=== PATIENT | female | born 1995 | race African-American/Black ===

== ENCOUNTER 2017-01-24 05:49 | Emergency (ER) | payer OTHER ==
[~2017-01-24] VITALS: Ht 162.6 cm; Wt 80.0 kg
[~2017-01-24 05:49] MED LIST: OXCA600T5 PO
[2017-01-24] MEDS ORDERED: IOHEXOL-300 100 ML BOTTLE ONE (06:00)
[2017-01-24] MEDS ORDERED: SODIUM CHLORIDE 0.9% 10ML VIAL ONE (06:00)
[2017-01-24] MEDS ORDERED: MORPHINE SULFATE 4 MG/ML CPJ (NOT FOR IM USE) IV STA (06:13)
[2017-01-24] MEDS ORDERED: SODIUM CHLORIDE 0.9% 1,000 ML IV ONE (06:13)
[2017-01-24] MEDS ORDERED: ONDANSETRON HCL 4MG/2ML VIAL IV STA (06:13)
[2017-01-24 06:30] LABS: CLARITY URINE CLOUDY (CLEAR); COLOR URINE YELLOW (YELLOW); GLUCOSE URINE NEGATIVE (NEGATIVE); KETONES URINE NEGATIVE (NEGATIVE); LEUKOCYTE ESTERASE URINE 3+ (NEGATIVE); NITRITE URINE NEGATIVE (NEGATIVE); OCCULT BLOOD URINE TRACE (NEGATIVE); PH URINE 6.5 (4.5-8.0); PROTEIN URINE NEGATIVE (NEGATIVE); SPECIFIC GRAVITY URINE 1.022 (1.005-1.030); UROBILINOGEN URINE 0.2 E.U./dL (0.2-1.0)
[2017-01-24 06:33] LABS: BASOPHILS % 0.6 % (0.0-2.0); HEMATOCRIT. 36.9 % (36.0-48.0); HEMOGLOBIN. 12.1 g/dL (12.0-16.0); LYMPHOCYTES % 41.4 % (20.0-50.0); MEAN CORPUSCULAR HEMOGLOBIN 27.3 pg (28.0-32.0); MEAN CORPUSCULAR HGB CONC 32.9 g/dL (31.0-37.0); MEAN PLATELET VOLUME 8.6 fl (7.4-10.4); MONOCYTES % 10.3 % (2.0-8.0); NEUTROPHILS % 45.7 % (40.0-76.0); PLATELET 229 x1000/uL (130-400); RED BLOOD CELL COUNT 4.45 mill/uL (4.2-5.4); RED CELL DISTRIBUTION WIDTH 14.7 % (11.6-14.6)
[2017-01-24 06:36] LABS: PARTIAL THROMBOPLASTIN TIME 27.5 sec (24.0-34.0); PROTHROMBIN TIME 10.2 sec
[2017-01-24 06:41] LABS: ALANINE AMINOTRANSFERASE 32 IU/L (13-61); ALBUMIN 3.5 g/dL (3.4-5.0); ANION GAP 13; CALCIUM 9.1 mg/dL (8.5-10.1); CARBON DIOXIDE 26 mEq/L (21-32); CHLORIDE 105 mEq/L (98-107); INDEX HEMOLYSI 1 (1-3); INDEX ICTERIC 1 (1-4); INDEX LIPEMIC 1 (1-3); LIPASE 150 IU/L (73-393); UREA NITROGEN BLOOD 11 mg/dL (7-21); eGFR > 60 mL/min (>60)
[2017-01-24] MEDS ORDERED: CEFTRIAXONE 1 G PREMIX 50 ML IV ONE (06:45)
[2017-01-24 06:47] LABS: HCG SCREEN NEGATIVE
[2017-01-24 06:57] LABS: BACTERIA URINE 4+; SQUAMOUS EPITHELIAL CELL URINE 3+ /lpf (RARE/1+); WBC URINE 50-100 /hpf (0-2)
[2017-01-24] MEDS ORDERED: KETOROLAC 30MG/ML VIAL IV ONE (08:45)
[2017-01-24 09:10] VITALS: BP 151/94
== END 2017-01-24 09:24 | disposition home or self-care (01) ==
LOC: ER 05:59
DX: N39.0 Urinary tract infection, site not specified (principal); R56.9 Unspecified convulsions
CPT/HCPCS: 36415; 74177; 76830; 76856; 80053; 81001; 83690; 84703; 85025; 85610; 85730; 87077; 87086; 96361; 96365; 96375; 99285; A4216; J0696; J1885; J2270; J2405; J7030; Q9967; Z7610

== ENCOUNTER 2017-02-14 13:19 | Inpatient (IN) | payer MEDICAID, OTHER ==
[~2017-02-14] VITALS: Ht 162.6 cm; Wt 84.9 kg
[2017-02-14] MEDS ORDERED: SODIUM CHLORIDE 0.9% 1,000 ML IV ONE (14:49)
[2017-02-14] MEDS ORDERED: ONDANSETRON HCL 4MG/2ML VIAL IV STA (14:49)
[2017-02-14] MEDS ORDERED: LORAZEPAM 2MG/ML CPJ ONE (14:56)
[2017-02-14] MEDS ORDERED: LORAZEPAM 2MG/ML CPJ IV ONE ×2 (15:00→20:30)
[2017-02-14 15:07] LABS: BASOPHILS % 0.4 % (0.0-2.0); HEMATOCRIT. 35.8 % (36.0-48.0); HEMOGLOBIN. 11.9 g/dL (12.0-16.0); LYMPHOCYTES % 19.4 % (20.0-50.0); MEAN CORPUSCULAR HEMOGLOBIN 27.5 pg (28.0-32.0); MEAN CORPUSCULAR HGB CONC 33.2 g/dL (31.0-37.0); MEAN CORPUSCULAR VOLUME 82.9 fL (81.0-99.0); MEAN PLATELET VOLUME 8.2 fl (7.4-10.4); MONOCYTES % 9.3 % (2.0-8.0); NEUTROPHILS % 69.9 % (40.0-76.0); PLATELET 266 x1000/uL (130-400); RED BLOOD CELL COUNT 4.31 mill/uL (4.2-5.4); RED CELL DISTRIBUTION WIDTH 14.8 % (11.6-14.6); WHITE BLOOD COUNT 7.3 x1000/uL (4.5-11.0)
[2017-02-14 15:15] LABS: PROTHROMBIN TIME 10.5 sec
[2017-02-14 15:21] LABS: ALANINE AMINOTRANSFERASE 27 IU/L (13-61); ALBUMIN 3.4 g/dL (3.4-5.0); ANION GAP 10; CALCIUM 9.1 mg/dL (8.5-10.1); CARBON DIOXIDE 28 mEq/L (21-32); CHLORIDE 106 mEq/L (98-107); ETHANOL BLOOD < 10 mg/dL; INDEX HEMOLYSI 1 (1-3); INDEX ICTERIC 1 (1-4); INDEX LIPEMIC 1 (1-3); UREA NITROGEN BLOOD 14 mg/dL (7-21); eGFR > 60 mL/min (>60)
[2017-02-14 15:22] LABS: CREATINE KINASE 126 IU/L (26-192); NT PRO B-TYPE NATRIURETIC PEP 84 pg/mL (5-125); TROPONIN I < 0.02 ng/mL (0.00-0.04)
[2017-02-14 15:23] LABS: PHENOBARBITAL 2.5 ug/mL (15.0-40.0)
[2017-02-14 15:35] LABS: CARBAMAZEPINE < 0.5 ug/mL (4-12); PHENYTOIN < 0.4 ug/mL (10-20); VALPROIC ACID 5.2 ug/mL (50-100)
[2017-02-14 16:51] LABS: CLARITY URINE CLEAR (CLEAR); COLOR URINE YELLOW (YELLOW); GLUCOSE URINE NEGATIVE (NEGATIVE); KETONES URINE NEGATIVE (NEGATIVE); LEUKOCYTE ESTERASE URINE 1+ (NEGATIVE); NITRITE URINE NEGATIVE (NEGATIVE); OCCULT BLOOD URINE TRACE (NEGATIVE); PROTEIN URINE NEGATIVE (NEGATIVE); SPECIFIC GRAVITY URINE 1.025 (1.005-1.030); UROBILINOGEN URINE 0.2 E.U./dL (0.2-1.0)
[2017-02-14 17:18] LABS: BACTERIA URINE 1+; RBC URINE 0-2 /hpf (0-2); SQUAMOUS EPITHELIAL CELL URINE 1+ /lpf (RARE/1+)
[2017-02-14] MEDS ORDERED: LEVETIRACETAM 500MG PREMIX 100 ML IV ONE (17:30)
[2017-02-14 17:45] LABS: *AMPHETAMINES SCREEN URINE NEGATIVE (NEGATIVE); *BARBITURATES SCREEN URINE NEGATIVE (NEGATIVE); *BENZODIAZEPINES SCREEN URINE NEGATIVE (NEGATIVE); *COCAINE SCREEN URINE NEGATIVE (NEGATIVE); CANNABINOID URINE SCREEN NEGATIVE (NEGATIVE); ECSTASY MDMA SCREEN URINE NEGATIVE (NEGATIVE); METHADONE URINE SCREEN NEGATIVE (NEGATIVE); OPIATES URINE SCREEN NEGATIVE (NEGATIVE); PHENCYCLIDINE URINE SCREEN NEGATIVE (NEGATIVE)
[2017-02-15] MEDS ORDERED: ONDANSETRON HCL 4MG/2ML VIAL IV PRN (00:45)
[2017-02-15] MEDS ORDERED: LORAZEPAM 2MG/ML CPJ IV PRN (00:45)
[2017-02-15] MEDS ORDERED: ACETAMINOPHEN 325MG TABLET PO PRN (00:45)
[2017-02-15] MEDS ORDERED: CLONIDINE 0.1MG TABLET PO PRN (00:45)
[2017-02-15] MEDS ORDERED: IPRATROPIUM/ALBUTEROL 0.5-3(2.5)MG/3ML NEB INH PRN (00:45)
[2017-02-15] MEDS ORDERED: MAGNESIUM/ALUMINUM HYDROXIDE/SIMETHICONE 30ML UDC PO PRN (00:45)
[2017-02-15 01:15] LABS: CHLORIDE 106 mEq/L (98-107); INDEX HEMOLYSI 1 (1-3); INDEX ICTERIC 1 (1-4); INDEX LIPEMIC 1 (1-3)
[2017-02-15 01:21] LABS: ANION GAP 12; CALCIUM 8.7 mg/dL (8.5-10.1); CARBON DIOXIDE 28 mEq/L (21-32); UREA NITROGEN BLOOD 9 mg/dL (7-21); eGFR > 60 mL/min (>60)
[2017-02-15 03:10] VITALS: BP 129/77
[2017-02-15 04:00] VITALS: BP 129/77
[2017-02-15 07:46] LABS: INDEX HEMOLYSI 1 (1-3)
[2017-02-15 08:00] VITALS: BP 120/68
[2017-02-15 08:13] LABS: CREATINE KINASE 108 IU/L (26-192); CREATINE KINASE MB FRACTION < 0.5 ng/mL (0.5-3.6); TROPONIN I < 0.02 ng/mL (0.00-0.04)
[2017-02-15] MEDS: ENOXAPARIN 40MG/0.4ML SYR SUBCUT SCH (08:44)
[2017-02-15] MEDS ORDERED: LEVETIRACETAM 500MG TABLET PO SCH (09:00)
[2017-02-15] MEDS ORDERED: DIVALPROEX SODIUM 500MG ER TABLET PO SCH (11:15)
[2017-02-15 12:00] VITALS: BP 125/70
[2017-02-15] MEDS: LORAZEPAM 2MG/ML CPJ IV PRN ×2 (12:28→21:02)
[2017-02-15] MEDS: CEFTRIAXONE 1 G PREMIX 50 ML IV SCH (13:20)
[2017-02-15] MEDS ORDERED: PHENYTOIN SODIUM 1,000 MG in SODIUM CHLORIDE 0.9% 100 ML IV NR (15:30)
[2017-02-15 16:00] VITALS: BP 140/96
[2017-02-15] MEDS: DIVALPROEX SODIUM 500MG ER TABLET PO SCH (17:02)
[2017-02-15 17:21] LABS: CREATINE KINASE 104 IU/L (26-192); CREATINE KINASE MB FRACTION < 0.5 ng/mL (0.5-3.6); INDEX HEMOLYSI 1 (1-3); TROPONIN I < 0.02 ng/mL (0.00-0.04)
[2017-02-15 20:00] VITALS: BP 110/73
[2017-02-15 23:01] LABS: CLARITY URINE CLEAR (CLEAR); COLOR URINE YELLOW (YELLOW); GLUCOSE URINE NEGATIVE (NEGATIVE); KETONES URINE NEGATIVE (NEGATIVE); LEUKOCYTE ESTERASE URINE 3+ (NEGATIVE); NITRITE URINE NEGATIVE (NEGATIVE); OCCULT BLOOD URINE NEGATIVE (NEGATIVE); PH URINE 6.5 (4.5-8.0); PROTEIN URINE NEGATIVE (NEGATIVE); SPECIFIC GRAVITY URINE 1.011 (1.005-1.030); UROBILINOGEN URINE 0.2 E.U./dL (0.2-1.0)
[2017-02-15 23:33] LABS: RBC URINE 0-2 /hpf (0-2)
[2017-02-15 23:34] LABS: SQUAMOUS EPITHELIAL CELL URINE FEW /lpf (RARE/1+)
[2017-02-15 23:35] LABS: BACTERIA URINE 1+
[2017-02-16] VITALS: BP 132/74
[2017-02-16 04:00] VITALS: BP 123/81
[2017-02-16 06:08] LABS: BASOPHILS % 0.4 % (0.0-2.0); EOSINOPHILS % 2.1 % (0.0-5.0); HEMATOCRIT. 38.8 % (36.0-48.0); HEMOGLOBIN. 12.8 g/dL (12.0-16.0); LYMPHOCYTES % 37.9 % (20.0-50.0); MEAN CORPUSCULAR HEMOGLOBIN 27.6 pg (28.0-32.0); MEAN CORPUSCULAR HGB CONC 32.9 g/dL (31.0-37.0); MEAN CORPUSCULAR VOLUME 83.9 fL (81.0-99.0); MEAN PLATELET VOLUME 8.6 fl (7.4-10.4); NEUTROPHILS % 47.6 % (40.0-76.0); PLATELET 254 x1000/uL (130-400); RED BLOOD CELL COUNT 4.62 mill/uL (4.2-5.4); RED CELL DISTRIBUTION WIDTH 14.9 % (11.6-14.6); WHITE BLOOD COUNT 5.3 x1000/uL (4.5-11.0)
[2017-02-16 06:56] LABS: CHLORIDE 102 mEq/L (98-107); INDEX HEMOLYSI 1 (1-3); INDEX ICTERIC 1 (1-4); INDEX LIPEMIC 1 (1-3)
[2017-02-16 07:30] LABS: ANION GAP 17; CALCIUM 9.5 mg/dL (8.5-10.1); CARBON DIOXIDE 25 mEq/L (21-32); HDL CHOLESTEROL 66 mg/dL (40-59); LDL CHOLESTEROL 156 mg/dL (5-100); TRIGLYCERIDE 67 mg/dL (0-150); UREA NITROGEN BLOOD 13 mg/dL (7-21); eGFR > 60 mL/min (>60)
[2017-02-16 08:00] VITALS: BP 117/70
[2017-02-16] MEDS: LORAZEPAM 2MG/ML CPJ IV PRN (08:03)
[2017-02-16] MEDS: DIVALPROEX SODIUM 500MG ER TABLET PO SCH ×2 (09:46→12:48)
[2017-02-16] MEDS: ENOXAPARIN 40MG/0.4ML SYR SUBCUT SCH (09:47)
[2017-02-16 12:00] VITALS: BP 118/80
[2017-02-16] MEDS: CEFTRIAXONE 1 G PREMIX 50 ML IV SCH (12:48)
[2017-02-16 13:43] VITALS: BP 127/91
[2017-02-16] MEDS ORDERED: PHENYTOIN SODIUM EXTENDED 100MG CAPSULE PO SCH (21:00)
== END 2017-02-16 14:15 | disposition home or self-care (01) | DRG 53 ==
LOC: ER 15:10 → 8WST 21:02
PROVIDERS: ADMIT Internal Medicine; ATTEND Internal Medicine
DX: G40.919 Epilepsy, unspecified, intractable, without status epilepticus (principal); N39.0 Urinary tract infection, site not specified; E78.5 Hyperlipidemia, unspecified; E86.0 Dehydration
CPT/HCPCS: 36415; 70450; 70551; 80048; 80053; 80061; 80156; 80165; 80184; 80185; 80305; 81001; 82550; 82553; 82962; 83880; 84443; 84484; 85025; 85610; 87086; 93005; 93970; 96361; 96374; 96375; 96376; 99285; C1893; G0482; J0696; J1165; J1650; J1953; J2060; J2405; J7030; J7040; J7050

== ENCOUNTER 2017-06-30 08:27 | Emergency (ER) | payer OTHER, MEDICAID ==
[~2017-06-30] VITALS: Ht 165.1 cm; Wt 73.0 kg
[2017-06-30] MEDS ORDERED: LORAZEPAM 2MG/ML CPJ IV ONE (08:45)
[2017-06-30 09:22] LABS: GLUCOSE URINE NEGATIVE (NEGATIVE); KETONES URINE NEGATIVE (NEGATIVE); LEUKOCYTE ESTERASE URINE 2+ (NEGATIVE); NITRITE URINE NEGATIVE (NEGATIVE); OCCULT BLOOD URINE 2+ (NEGATIVE); PROTEIN URINE NEGATIVE (NEGATIVE); SPECIFIC GRAVITY URINE 1.023 (1.005-1.030); UROBILINOGEN URINE 0.2 E.U./dL (0.2-1.0)
[2017-06-30 09:31] LABS: BASOPHILS % 0.7 % (0.0-2.0); EOSINOPHILS % 2.1 % (0.0-5.0); HEMATOCRIT. 36.6 % (36.0-48.0); INR 0.9; LYMPHOCYTES % 44.3 % (20.0-50.0); MEAN CORPUSCULAR HEMOGLOBIN 26.7 pg (28.0-32.0); MEAN CORPUSCULAR VOLUME 81.5 fL (81.0-99.0); MONOCYTES % 8.2 % (2.0-8.0); NEUTROPHILS % 44.7 % (40.0-76.0); PLATELET 249 x1000/uL (130-400); PROTHROMBIN TIME 9.7 sec (9.4-11.6); RED BLOOD CELL COUNT 4.49 mill/uL (4.2-5.4); RED CELL DISTRIBUTION WIDTH 14.7 % (11.6-14.6)
[2017-06-30 09:31] LABS: CLARITY URINE HAZY (CLEAR); COLOR URINE YELLOW (YELLOW)
[2017-06-30 09:35] LABS: *AMPHETAMINES SCREEN URINE NEGATIVE (NEGATIVE); *BARBITURATES SCREEN URINE NEGATIVE (NEGATIVE); *BENZODIAZEPINES SCREEN URINE NEGATIVE (NEGATIVE); *COCAINE SCREEN URINE NEGATIVE (NEGATIVE); CANNABINOID URINE SCREEN NEGATIVE (NEGATIVE); METHADONE URINE SCREEN NEGATIVE (NEGATIVE); OPIATES URINE SCREEN NEGATIVE (NEGATIVE); PHENCYCLIDINE URINE SCREEN NEGATIVE (NEGATIVE)
[2017-06-30 09:41] LABS: CARBON DIOXIDE 26 mEq/L (21-32); CHLORIDE 105 mEq/L (98-107); ETHANOL BLOOD < 10 mg/dL; TROPONIN I < 0.02 ng/mL (0.00-0.04)
[2017-06-30] MEDS ORDERED: VALPROATE SODIUM 500 MG in SODIUM CHLORIDE 0.9% 100 ML IV SCH (11:30)
[2017-06-30 14:11] VITALS: BP 128/71
== END 2017-06-30 14:44 | disposition home or self-care (01) ==
LOC: ER 10:45
DX: G40.909 Epilepsy, unspecified, not intractable, without status epilepticus (principal); R03.0 Elevated blood-pressure reading, without diagnosis of hypertension
CPT/HCPCS: 36415; 71010; 80053; 80165; 80305; 81001; 81025; 83880; 84484; 85025; 85610; 93005; 96365; 96375; 99285; G0482; J2060; J3490; Z7610; J7050

== ENCOUNTER 2017-08-09 20:04 | Emergency (ER) | payer MEDICAID, OTHER ==
[~2017-08-09] VITALS: Ht 167.6 cm; Wt 76.0 kg
[2017-08-09] MEDS ORDERED: LORAZEPAM 2MG/ML CPJ ONE (20:36)
[2017-08-09 21:17] LABS: *AMPHETAMINES SCREEN URINE NEGATIVE (NEGATIVE); *BARBITURATES SCREEN URINE NEGATIVE (NEGATIVE); *BENZODIAZEPINES SCREEN URINE NEGATIVE (NEGATIVE); *COCAINE SCREEN URINE NEGATIVE (NEGATIVE); CANNABINOID URINE SCREEN NEGATIVE (NEGATIVE); METHADONE URINE SCREEN NEGATIVE (NEGATIVE); OPIATES URINE SCREEN NEGATIVE (NEGATIVE); PHENCYCLIDINE URINE SCREEN NEGATIVE (NEGATIVE)
[2017-08-09 21:34] LABS: BASOPHILS % 0.6 % (0.0-2.0); EOSINOPHILS % 0.5 % (0.0-5.0); HEMATOCRIT. 34.9 % (36.0-48.0); HEMOGLOBIN. 11.9 g/dL (12.0-16.0); LYMPHOCYTES % 28.9 % (20.0-50.0); MEAN CORPUSCULAR VOLUME 82.6 fL (81.0-99.0); MEAN PLATELET VOLUME 8.9 fl (7.4-10.4); MONOCYTES % 8.7 % (2.0-8.0); NEUTROPHILS % 61.3 % (40.0-76.0); PLATELET 215 x1000/uL (130-400); RED BLOOD CELL COUNT 4.23 mill/uL (4.2-5.4); RED CELL DISTRIBUTION WIDTH 14.8 % (11.6-14.6)
[2017-08-09 21:40] LABS: CARBON DIOXIDE 25 mEq/L (21-32); CHLORIDE 105 mEq/L (98-107)
[2017-08-09 21:42] LABS: ETHANOL BLOOD < 10 mg/dL
[2017-08-09 21:47] LABS: HCG SCREEN NEGATIVE
[2017-08-09] MEDS ORDERED: DIVALPROEX SODIUM 250MG ER TABLET PO ONE (22:00)
[2017-08-09 22:30] VITALS: BP 143/85
== END 2017-08-09 23:00 | disposition home or self-care (01) ==
LOC: ER 20:54
DX: G40.909 Epilepsy, unspecified, not intractable, without status epilepticus (principal); D64.9 Anemia, unspecified; F90.9 Attention-deficit hyperactivity disorder, unspecified type; F84.0 Autistic disorder; F31.9 Bipolar disorder, unspecified
CPT/HCPCS: 36415; 70450; 80053; 80165; 80305; 82962; 84703; 85025; 99285; G0482; J2060; Z7610

== ENCOUNTER 2017-08-25 07:21 | Emergency (ER) | payer OTHER ==
[~2017-08-25] VITALS: Ht 162.6 cm; Wt 95.0 kg
[2017-08-25] MEDS ORDERED: ONDANSETRON 4MG ODT PO STA (07:51)
[2017-08-25] MEDS ORDERED: KETOROLAC 60MG/2ML VIAL IM STA (07:51)
[2017-08-25 08:18] LABS: BASOPHILS % 0.6 % (0.0-2.0); EOSINOPHILS % 0.8 % (0.0-5.0); HEMATOCRIT. 38.2 % (36.0-48.0); HEMOGLOBIN. 12.8 g/dL (12.0-16.0); LYMPHOCYTES % 44.4 % (20.0-50.0); MEAN CORPUSCULAR HEMOGLOBIN 27.7 pg (28.0-32.0); MEAN PLATELET VOLUME 8.5 fl (7.4-10.4); MONOCYTES % 10.9 % (2.0-8.0); NEUTROPHILS % 43.3 % (40.0-76.0); PLATELET 292 x1000/uL (130-400); RED CELL DISTRIBUTION WIDTH 14.9 % (11.6-14.6)
[2017-08-25 08:21] LABS: GLUCOSE URINE NEGATIVE (NEGATIVE); KETONES URINE NEGATIVE (NEGATIVE); LEUKOCYTE ESTERASE URINE 2+ (NEGATIVE); NITRITE URINE NEGATIVE (NEGATIVE); OCCULT BLOOD URINE NEGATIVE (NEGATIVE); PH URINE 6.5 (4.5-8.0); PROTEIN URINE NEGATIVE (NEGATIVE); SPECIFIC GRAVITY URINE 1.025 (1.005-1.030); UROBILINOGEN URINE 0.2 E.U./dL (0.2-1.0)
[2017-08-25 08:24] LABS: CLARITY URINE HAZY (CLEAR); COLOR URINE YELLOW (YELLOW)
[2017-08-25 08:31] LABS: PROTHROMBIN TIME 10.5 sec (9.4-11.6)
[2017-08-25 08:33] LABS: CARBON DIOXIDE 27 mEq/L (21-32); CHLORIDE 104 mEq/L (98-107)
[2017-08-25 08:45] LABS: *AMPHETAMINES SCREEN URINE NEGATIVE (NEGATIVE); *BARBITURATES SCREEN URINE NEGATIVE (NEGATIVE); *BENZODIAZEPINES SCREEN URINE NEGATIVE (NEGATIVE); *COCAINE SCREEN URINE NEGATIVE (NEGATIVE); CANNABINOID URINE SCREEN NEGATIVE (NEGATIVE); METHADONE URINE SCREEN NEGATIVE (NEGATIVE); OPIATES URINE SCREEN NEGATIVE (NEGATIVE); PHENCYCLIDINE URINE SCREEN NEGATIVE (NEGATIVE)
[2017-08-25 09:18] VITALS: BP 119/63
== END 2017-08-25 09:33 | disposition home or self-care (01) ==
LOC: ER 07:41
DX: N39.0 Urinary tract infection, site not specified (principal); R56.9 Unspecified convulsions; F31.9 Bipolar disorder, unspecified
CPT/HCPCS: 36415; 80053; 80305; 81001; 81025; 83690; 85025; 85610; 96372; 99284; J1885; Q0162

== ENCOUNTER 2017-09-27 21:17 | Emergency (ER) | payer MEDICAID, OTHER ==
[~2017-09-27] VITALS: Ht 170.2 cm; Wt 75.0 kg
[2017-09-27] MEDS ORDERED: SODIUM CHLORIDE 0.9% 1,000 ML IV ONE (21:27)
[2017-09-27] MEDS ORDERED: LORAZEPAM 2MG/ML CPJ IV ONE (21:30)
[2017-09-27 21:55] LABS: BASOPHILS % 0.4 % (0.0-2.0); EOSINOPHILS % 1.2 % (0.0-5.0); HEMATOCRIT. 35.7 % (36.0-48.0); HEMOGLOBIN. 11.9 g/dL (12.0-16.0); LYMPHOCYTES % 30.1 % (20.0-50.0); MEAN CORPUSCULAR VOLUME 83.9 fL (81.0-99.0); MEAN PLATELET VOLUME 8.6 fl (7.4-10.4); MONOCYTES % 10.9 % (2.0-8.0); NEUTROPHILS % 57.4 % (40.0-76.0); PLATELET 239 x1000/uL (130-400); RED BLOOD CELL COUNT 4.26 mill/uL (4.2-5.4); RED CELL DISTRIBUTION WIDTH 14.7 % (11.6-14.6)
[2017-09-27 21:58] LABS: PROTHROMBIN TIME 10.4 sec (9.4-11.6)
[2017-09-27 22:04] LABS: AMMONIA < 25 uMol/L (<32); HCG SCREEN NEGATIVE
[2017-09-27 22:13] LABS: CARBON DIOXIDE 28 mEq/L (21-32); CHLORIDE 104 mEq/L (98-107); CREATINE KINASE 115 IU/L (26-192); ETHANOL BLOOD < 10 mg/dL
[2017-09-27 22:13] LABS: CLARITY URINE CLEAR (CLEAR); COLOR URINE YELLOW (YELLOW); GLUCOSE URINE NEGATIVE (NEGATIVE); KETONES URINE NEGATIVE (NEGATIVE); LEUKOCYTE ESTERASE URINE TRACE (NEGATIVE); NITRITE URINE NEGATIVE (NEGATIVE); OCCULT BLOOD URINE NEGATIVE (NEGATIVE); PROTEIN URINE NEGATIVE (NEGATIVE); SPECIFIC GRAVITY URINE 1.026 (1.005-1.030); UROBILINOGEN URINE 0.2 E.U./dL (0.2-1.0)
[2017-09-27 22:16] LABS: CARBAMAZEPINE < 0.5 ug/mL (4-12); PHENOBARBITAL < 2.1 ug/mL (15.0-40.0)
[2017-09-27 22:29] LABS: *AMPHETAMINES SCREEN URINE NEGATIVE (NEGATIVE); *BARBITURATES SCREEN URINE NEGATIVE (NEGATIVE); *BENZODIAZEPINES SCREEN URINE NEGATIVE (NEGATIVE); *COCAINE SCREEN URINE NEGATIVE (NEGATIVE); CANNABINOID URINE SCREEN NEGATIVE (NEGATIVE); METHADONE URINE SCREEN NEGATIVE (NEGATIVE); OPIATES URINE SCREEN NEGATIVE (NEGATIVE); PHENCYCLIDINE URINE SCREEN NEGATIVE (NEGATIVE)
[2017-09-27] MEDS ORDERED: ACETAMINOPHEN 325MG TABLET PO STA (22:56)
[2017-09-27 23:30] VITALS: BP 153/79
[2017-09-27] MEDS ORDERED: CEFTRIAXONE 1 G PREMIX 50 ML IV SCH (23:30)
[2017-09-27] MEDS ORDERED: DOXYCYCLINE HYCLATE 100MG CAPSULE PO ONE (23:45)
== END 2017-09-27 23:54 | disposition home or self-care (01) ==
LOC: ER 22:48
DX: R56.9 Unspecified convulsions (principal); N39.0 Urinary tract infection, site not specified
CPT/HCPCS: 36415; 70450; 71010; 80053; 80156; 80165; 80184; 80185; 80305; 81001; 82140; 82550; 83605; 83690; 84443; 84703; 85025; 85610; 87086; 93005; 96361; 96374; 99285; G0482; J2060; J7030; Z7610

== ENCOUNTER 2017-10-30 16:04 | Emergency (ER) | payer MEDICAID, OTHER ==
[~2017-10-30] VITALS: Ht 162.6 cm; Wt 96.0 kg
[2017-10-30] MEDS ORDERED: SODIUM CHLORIDE 0.9% 1,000 ML IV ONE (16:46)
[2017-10-30 17:32] LABS: BASOPHILS % 0.7 % (0.0-2.0); EOSINOPHILS % 1.1 % (0.0-5.0); HEMATOCRIT. 37.7 % (36.0-48.0); HEMOGLOBIN. 12.6 g/dL (12.0-16.0); LYMPHOCYTES % 26.3 % (20.0-50.0); MEAN CORPUSCULAR HEMOGLOBIN 28.2 pg (28.0-32.0); MEAN CORPUSCULAR VOLUME 84.5 fL (81.0-99.0); MEAN PLATELET VOLUME 8.8 fl (7.4-10.4); MONOCYTES % 10.1 % (2.0-8.0); NEUTROPHILS % 61.8 % (40.0-76.0); PLATELET 235 x1000/uL (130-400); RED BLOOD CELL COUNT 4.46 mill/uL (4.2-5.4); RED CELL DISTRIBUTION WIDTH 14.5 % (11.6-14.6)
[2017-10-30 17:37] LABS: PROTHROMBIN TIME 10.4 sec (9.4-11.6)
[2017-10-30 17:44] LABS: CLARITY URINE CLOUDY (CLEAR); COLOR URINE YELLOW (YELLOW); KETONES URINE NEGATIVE (NEGATIVE); LEUKOCYTE ESTERASE URINE 3+ (NEGATIVE); NITRITE URINE NEGATIVE (NEGATIVE); OCCULT BLOOD URINE NEGATIVE (NEGATIVE); PROTEIN URINE NEGATIVE (NEGATIVE); SPECIFIC GRAVITY URINE 1.026 (1.005-1.030); UROBILINOGEN URINE 0.2 E.U./dL (0.2-1.0)
[2017-10-30 17:47] LABS: CARBON DIOXIDE 28 mEq/L (21-32); CHLORIDE 106 mEq/L (98-107); ETHANOL BLOOD < 10 mg/dL
[2017-10-30 17:52] LABS: VALPROIC ACID < 3.0 ug/mL (50-100)
[2017-10-30 17:56] LABS: *AMPHETAMINES SCREEN URINE NEGATIVE (NEGATIVE); *BARBITURATES SCREEN URINE NEGATIVE (NEGATIVE); *BENZODIAZEPINES SCREEN URINE NEGATIVE (NEGATIVE); *COCAINE SCREEN URINE NEGATIVE (NEGATIVE); METHADONE URINE SCREEN NEGATIVE (NEGATIVE); OPIATES URINE SCREEN NEGATIVE (NEGATIVE); PHENCYCLIDINE URINE SCREEN NEGATIVE (NEGATIVE)
[2017-10-30 17:57] LABS: CANNABINOID URINE SCREEN PRESUMTIVE POSITIVE (NEGATIVE)
[2017-10-30] MEDS ORDERED: VALPROATE SODIUM 500 MG in SODIUM CHLORIDE 0.9% 100 ML IV STA (17:58)
[2017-10-30] MEDS ORDERED: CEFTRIAXONE 1 G PREMIX 50 ML IV ONE (18:00)
[2017-10-30 20:38] VITALS: BP 138/71
== END 2017-10-30 20:38 | disposition home or self-care (01) ==
LOC: ER 16:31
DX: G40.909 Epilepsy, unspecified, not intractable, without status epilepticus (principal); N30.00 Acute cystitis without hematuria; R79.1 Abnormal coagulation profile
CPT/HCPCS: 36415; 80053; 80165; 80305; 81001; 81025; 85025; 85610; 96361; 96365; 96366; 96368; 99285; G0482; J0696; J3490; J7030; J7050

== ENCOUNTER 2017-11-18 14:50 | Emergency (ER) | payer MEDICAID ==
[~2017-11-18] VITALS: Ht 172.7 cm; Wt 101.0 kg
[2017-11-18] MEDS ORDERED: DIVA-18 PO (15:09)
[2017-11-18] MEDS ORDERED: VALPROATE SODIUM 500 MG in SODIUM CHLORIDE 0.9% 100 ML IV STA (16:35)
[2017-11-18 17:06] LABS: BASOPHILS % 0.3 % (0.0-2.0); CHLORIDE 105 mEq/L (98-107); EOSINOPHILS % 0.8 % (0.0-5.0); HEMATOCRIT. 36.1 % (36.0-48.0); HEMOGLOBIN. 12.2 g/dL (12.0-16.0); LYMPHOCYTES % 37.1 % (20.0-50.0); MEAN CORPUSCULAR HEMOGLOBIN 28.4 pg (28.0-32.0); MEAN CORPUSCULAR VOLUME 83.9 fL (81.0-99.0); MEAN PLATELET VOLUME 8.9 fl (7.4-10.4); MONOCYTES % 12.1 % (2.0-8.0); NEUTROPHILS % 49.7 % (40.0-76.0); PLATELET 286 x1000/uL (130-400); RED CELL DISTRIBUTION WIDTH 14.5 % (11.6-14.6)
[2017-11-18 17:10] LABS: INR 0.9; PROTHROMBIN TIME 9.8 sec (9.4-11.6)
[2017-11-18 17:14] LABS: ETHANOL BLOOD < 10 mg/dL
[2017-11-18 17:37] LABS: KETONES URINE NEGATIVE (NEGATIVE); LEUKOCYTE ESTERASE URINE NEGATIVE (NEGATIVE); NITRITE URINE NEGATIVE (NEGATIVE); OCCULT BLOOD URINE NEGATIVE (NEGATIVE); PROTEIN URINE NEGATIVE (NEGATIVE); SPECIFIC GRAVITY URINE 1.011 (1.005-1.030); UROBILINOGEN URINE 0.2 E.U./dL (0.2-1.0)
[2017-11-18 17:39] LABS: CLARITY URINE CLEAR (CLEAR); COLOR URINE YELLOW (YELLOW)
[2017-11-18 17:45] LABS: *AMPHETAMINES SCREEN URINE NEGATIVE (NEGATIVE); *BARBITURATES SCREEN URINE NEGATIVE (NEGATIVE); *BENZODIAZEPINES SCREEN URINE NEGATIVE (NEGATIVE); *COCAINE SCREEN URINE NEGATIVE (NEGATIVE); CANNABINOID URINE SCREEN NEGATIVE (NEGATIVE); METHADONE URINE SCREEN NEGATIVE (NEGATIVE); OPIATES URINE SCREEN NEGATIVE (NEGATIVE); PHENCYCLIDINE URINE SCREEN NEGATIVE (NEGATIVE)
[2017-11-18 20:06] VITALS: BP 132/80
[2017-11-18] MEDS ORDERED: LEVETIRACETAM 500MG PREMIX 100 ML IV ONE (20:15)
== END 2017-11-18 20:49 | disposition home or self-care (01) ==
LOC: ER 14:59
DX: O26.899 Other specified pregnancy related conditions, unspecified trimester (principal); G40.909 Epilepsy, unspecified, not intractable, without status epilepticus; J45.909 Unspecified asthma, uncomplicated; F99 Mental disorder, not otherwise specified; Z91.14 Patient's other noncompliance with medication regimen; Z3A.00 Weeks of gestation of pregnancy not specified
CPT/HCPCS: 36415; 71045; 80053; 80165; 80305; 81003; 81025; 84702; 85025; 85610; 93005; 96365; 99285; G0482; J1953; Z7610; J3490; J7050

== ENCOUNTER 2017-12-10 09:24 | Emergency (ER) | payer MEDICAID ==
[~2017-12-10] VITALS: Ht 162.6 cm; Wt 82.0 kg
[~2017-12-10 09:24] MED LIST changes: +DIVA-18 PO; -OXCA600T5 PO
[2017-12-10 10:12] LABS: CLARITY URINE CLEAR (CLEAR); COLOR URINE YELLOW (YELLOW); KETONES URINE NEGATIVE (NEGATIVE); LEUKOCYTE ESTERASE URINE 2+ (NEGATIVE); NITRITE URINE NEGATIVE (NEGATIVE); OCCULT BLOOD URINE NEGATIVE (NEGATIVE); PROTEIN URINE NEGATIVE (NEGATIVE); SPECIFIC GRAVITY URINE 1.025 (1.005-1.030)
[2017-12-10 11:37] LABS: BASOPHILS % 0.3 % (0.0-2.0); EOSINOPHILS % 0.7 % (0.0-5.0); HEMATOCRIT. 36.8 % (36.0-48.0); HEMOGLOBIN. 12.1 g/dL (12.0-16.0); LYMPHOCYTES % 29.7 % (20.0-50.0); MEAN CORPUSCULAR HEMOGLOBIN 27.8 pg (28.0-32.0); MEAN CORPUSCULAR VOLUME 84.5 fL (81.0-99.0); MEAN PLATELET VOLUME 8.5 fl (7.4-10.4); NEUTROPHILS % 61.3 % (40.0-76.0); PLATELET 270 x1000/uL (130-400); RED BLOOD CELL COUNT 4.36 mill/uL (4.2-5.4); RED CELL DISTRIBUTION WIDTH 14.6 % (11.6-14.6)
[2017-12-10 11:41] LABS: CHLORIDE 103 mEq/L (98-107)
[2017-12-10 12:05] LABS: B-HCG QUANTITATIVE 149737 mIU/mL (<3)
[2017-12-10] MEDS ORDERED: ACETAMINOPHEN 325MG TABLET PO ONE (12:15)
[2017-12-10 12:46] VITALS: BP 129/78
== END 2017-12-10 13:06 | disposition home or self-care (01) ==
LOC: ER 10:10
DX: O23.41 Unspecified infection of urinary tract in pregnancy, first trimester (principal); N89.8 Other specified noninflammatory disorders of vagina; O99.511 Diseases of the respiratory system complicating pregnancy, first trimester; J45.909 Unspecified asthma, uncomplicated; O26.891 Other specified pregnancy related conditions, first trimester; R56.9 Unspecified convulsions; Z3A.09 9 weeks gestation of pregnancy
CPT/HCPCS: 36415; 76801; 80053; 81003; 81025; 84702; 85025; 86850; 86900; 99285

== ENCOUNTER 2017-12-25 17:40 | Emergency (ER) | payer MEDICAID ==
[~2017-12-25] VITALS: Ht 162.6 cm; Wt 70.3 kg
[2017-12-25 17:56] VITALS: BP 141/85
== END 2017-12-25 22:45 | disposition left against medical advice (07) ==
LOC: ER 17:40
DX: O26.891 Other specified pregnancy related conditions, first trimester (principal); R10.2 Pelvic and perineal pain; Z53.21 Procedure and treatment not carried out due to patient leaving prior to being seen by health care provider; Z3A.11 11 weeks gestation of pregnancy

== ENCOUNTER 2017-12-26 17:48 | Emergency (ER) | payer MEDICAID ==
[~2017-12-26] VITALS: Ht 162.6 cm; Wt 96.9 kg
[2017-12-26] MEDS ORDERED: DEXT 5%/0.45% NACL 500ML 500 ML IV ONE (21:15)
[2017-12-26] MEDS ORDERED: METOCLOPRAMIDE HCL 10MG/2ML VIAL IV ONE (21:15)
[2017-12-26 21:50] LABS: BASOPHILS % 0.7 % (0.0-2.0); EOSINOPHILS % 0.8 % (0.0-5.0); HEMATOCRIT. 35.2 % (36.0-48.0); HEMOGLOBIN. 11.8 g/dL (12.0-16.0); LYMPHOCYTES % 32.4 % (20.0-50.0); MEAN CORPUSCULAR HEMOGLOBIN 28.4 pg (28.0-32.0); MEAN PLATELET VOLUME 8.8 fl (7.4-10.4); MONOCYTES % 8.3 % (2.0-8.0); NEUTROPHILS % 57.8 % (40.0-76.0); PLATELET 252 x1000/uL (130-400); RED BLOOD CELL COUNT 4.14 mill/uL (4.2-5.4); RED CELL DISTRIBUTION WIDTH 14.8 % (11.6-14.6)
[2017-12-26 21:59] LABS: CHLORIDE 103 mEq/L (98-107); HCG SCREEN POSITIVE
[2017-12-26 22:17] LABS: B-HCG QUANTITATIVE 62638 mIU/mL (<3)
[2017-12-26 23:45] VITALS: BP 119/61
[2017-12-26 23:58] LABS: CLARITY URINE CLEAR (CLEAR); COLOR URINE YELLOW (YELLOW); KETONES URINE TRACE (NEGATIVE); LEUKOCYTE ESTERASE URINE 1+ (NEGATIVE); NITRITE URINE NEGATIVE (NEGATIVE); OCCULT BLOOD URINE NEGATIVE (NEGATIVE); PH URINE 5.5 (4.5-8.0); PROTEIN URINE NEGATIVE (NEGATIVE); SPECIFIC GRAVITY URINE 1.029 (1.005-1.030); UROBILINOGEN URINE 0.2 E.U./dL (0.2-1.0)
[2017-12-27] MEDS ORDERED: ACETAMINOPHEN 325MG TABLET PO ONE (00:15)
== END 2017-12-27 00:42 | disposition home or self-care (01) ==
LOC: ER 17:48
DX: O23.41 Unspecified infection of urinary tract in pregnancy, first trimester (principal); N39.0 Urinary tract infection, site not specified; O99.511 Diseases of the respiratory system complicating pregnancy, first trimester; J45.909 Unspecified asthma, uncomplicated; O26.891 Other specified pregnancy related conditions, first trimester; R56.9 Unspecified convulsions; Z3A.11 11 weeks gestation of pregnancy
CPT/HCPCS: 36415; 76801; 76817; 80053; 81003; 84702; 84703; 85025; 86850; 86900; 86901; 87077; 87086; 99285; J2765; Z7610

== ENCOUNTER 2018-01-18 18:26 | Emergency (ER) | payer MEDICAID ==
[~2018-01-18] VITALS: Ht 167.6 cm; Wt 98.0 kg
[2018-01-18 19:50] LABS: BASOPHILS % 0.2 % (0.0-2.0); EOSINOPHILS % 0.1 % (0.0-5.0); HEMATOCRIT. 38.7 % (36.0-48.0); HEMOGLOBIN. 13.3 g/dL (12.0-16.0); LYMPHOCYTES % 21.7 % (20.0-50.0); MEAN CORPUSCULAR HEMOGLOBIN 29.9 pg (28.0-32.0); MEAN PLATELET VOLUME 8.5 fl (7.4-10.4); MONOCYTES % 10.5 % (2.0-8.0); NEUTROPHILS % 67.5 % (40.0-76.0); PLATELET 210 x1000/uL (130-400); RED BLOOD CELL COUNT 4.45 mill/uL (4.2-5.4); RED CELL DISTRIBUTION WIDTH 16.5 % (11.6-14.6)
[2018-01-18 19:55] LABS: CHLORIDE 102 mEq/L (98-107)
[2018-01-18 20:23] LABS: B-HCG QUANTITATIVE 34394 mIU/mL (<3)
[2018-01-18 21:31] LABS: CLARITY URINE CLOUDY (CLEAR); COLOR URINE YELLOW (YELLOW); KETONES URINE 2+ (NEGATIVE); LEUKOCYTE ESTERASE URINE 3+ (NEGATIVE); NITRITE URINE NEGATIVE (NEGATIVE); OCCULT BLOOD URINE NEGATIVE (NEGATIVE); PH URINE 5.5 (4.5-8.0); PROTEIN URINE NEGATIVE (NEGATIVE); SPECIFIC GRAVITY URINE 1.027 (1.005-1.030); UROBILINOGEN URINE 0.2 E.U./dL (0.2-1.0)
[2018-01-18] MEDS ORDERED: SODIUM CHLORIDE 0.9% 1,000 ML IV ONE (22:45)
[2018-01-18] MEDS ORDERED: ACETAMINOPHEN 325MG TABLET PO ONE (23:00)
[2018-01-19 01:25] VITALS: BP 122/76
== END 2018-01-19 01:50 | disposition home or self-care (01) ==
LOC: ER 18:26
DX: O20.0 Threatened abortion (principal); O23.41 Unspecified infection of urinary tract in pregnancy, first trimester; O26.891 Other specified pregnancy related conditions, first trimester; R10.31 Right lower quadrant pain; G40.909 Epilepsy, unspecified, not intractable, without status epilepticus; Z3A.14 14 weeks gestation of pregnancy
CPT/HCPCS: 36415; 76801; 76857; 80048; 81003; 81025; 84702; 85025; 86850; 86900; 86901; 87086; 96360; 99285; J7030; Z7610

== ENCOUNTER 2018-04-14 22:20 | Emergency (ER) | payer MEDICAID ==
[~2018-04-14] VITALS: Ht 162.6 cm; Wt 105.0 kg
[2018-04-15 03:30] VITALS: BP 137/84
== END 2018-04-15 05:00 | disposition left against medical advice (07) ==
LOC: ER 22:20
DX: Z53.21 Procedure and treatment not carried out due to patient leaving prior to being seen by health care provider (principal); R56.9 Unspecified convulsions

== ENCOUNTER 2018-05-20 20:41 | Observation (INO) | payer MEDICAID ==
[~2018-05-20] VITALS: Ht 30.5 cm; Wt 0.5 kg
[2018-05-20] MEDS: ONDANSETRON HCL 4MG/2ML VIAL IV NR ×2 (23:51→23:52)
[2018-05-21] MEDS ORDERED: MVI, ADULT NO.1 10 ML in SODIUM CHLORIDE 0.9% 1,000 ML IV NR ×2
[2018-05-21] MEDS ORDERED: CALC-1042 MT (01:39)
[2018-05-21] MEDS ORDERED: LEVE750T4 MT (01:39)
[2018-05-21] MEDS ORDERED: PREN1TAB78 MT (01:39)
[2018-05-21] MEDS ORDERED: FOLI0.4T2 MT (01:39)
== END 2018-05-21 02:30 | disposition home or self-care (01) ==
LOC: L&D 20:41
PROVIDERS: ADMIT Specialist; ATTEND Specialist
DX: O62.9 Abnormality of forces of labor, unspecified (principal); Z3A.32 32 weeks gestation of pregnancy
CPT/HCPCS: 96361; 96365; 96366; 96375; 99281; G0378; J2405; 96360; J3490; J7030

== ENCOUNTER 2021-05-27 08:52 | Emergency (ER) | payer MEDICAID ==
[~2021-05-27] VITALS: Ht 170.2 cm; Wt 70.0 kg
[~2021-05-27 08:52] MED LIST changes: +CALC-1042 MT; +DIVA125T2 PO; +FOLI0.4T6 MT; +LEVE750T4 MT; +PREN1TAB78 MT
[2021-05-27] MEDS ORDERED: KETOROLAC 30MG/ML VIAL IV STA (09:16)
[2021-05-27] MEDS ORDERED: ONDANSETRON HCL 4MG/2ML INJ IV STA (09:16)
[2021-05-27] MEDS ORDERED: SODIUM CHLORIDE 0.9% 1,000 ML IV ONE (09:30)
[2021-05-27 09:58] LABS: BASOPHILS % 0.5 % (0.0-2.0); EOSINOPHILS % 1.8 % (0.0-5.0); HEMATOCRIT. 43.2 % (36.0-48.0); HEMOGLOBIN. 14.9 g/dL (12.0-16.0); LYMPHOCYTES % 27.1 % (20.0-50.0); MEAN CORPUSCULAR HEMOGLOBIN 31.5 pg (28.0-32.0); MEAN CORPUSCULAR VOLUME 91.2 fL (81.0-99.0); MEAN PLATELET VOLUME 9.1 fl (7.4-10.4); MONOCYTES % 6.2 % (2.0-8.0); NEUTROPHILS % 64.4 % (40.0-76.0); PLATELET 246 x1000/uL (130-400); RED BLOOD CELL COUNT 4.73 mill/uL (4.2-5.4); RED CELL DISTRIBUTION WIDTH 12.5 % (11.6-14.6)
[2021-05-27 10:04] LABS: CHLORIDE 108 mEq/L (98-107)
[2021-05-27 10:27] LABS: CLARITY URINE CLEAR (CLEAR); COLOR URINE YELLOW (YELLOW); HCG SCREEN NEGATIVE; KETONES URINE TRACE (NEGATIVE); LEUKOCYTE ESTERASE URINE 1+ (NEGATIVE); NITRITE URINE NEGATIVE (NEGATIVE); OCCULT BLOOD URINE 2+ (NEGATIVE); PH URINE 6.5 (4.5-8.0); PROTEIN URINE NEGATIVE (NEGATIVE); SPECIFIC GRAVITY URINE 1.028 (1.005-1.030)
[2021-05-27] MEDS ORDERED: ONDA4TAB5 MT (13:45)
[2021-05-27] MEDS ORDERED: CEPH250C2 MT (13:45)
[2021-05-27] MEDS ORDERED: IBUP-2028 MT (13:45)
[2021-05-27 14:32] VITALS: BP 122/74
== END 2021-05-27 14:39 | disposition home or self-care (01) ==
LOC: ER 09:03
DX: N83.201 Unspecified ovarian cyst, right side (principal); N30.90 Cystitis, unspecified without hematuria; J45.909 Unspecified asthma, uncomplicated; Z79.899 Other long term (current) drug therapy
CPT/HCPCS: 36415; 74176; 76830; 76856; 80053; 81003; 81025; 83690; 84703; 85025; 96361; 96374; 96375; 99285; J1885; J2405; J7030; Z7610

== ENCOUNTER 2021-08-07 17:38 | Emergency (ER) | payer OTHER, MEDICAID ==
[~2021-08-07] VITALS: Ht 162.6 cm; Wt 75.0 kg
[~2021-08-07 17:38] MED LIST changes: +CEPH250C2 MT; +IBUP-2028 MT; +ONDA4TAB5 MT
[2021-08-07 17:42] VITALS: BP 123/57
[2021-08-07] MEDS ORDERED: TETANUS, DIPHTHERIA, PERTUSSIS VAC/PF 0.5ML (>10YR OLD) IM ONE (21:00)
[2021-08-07] MEDS ORDERED: IBUPROFEN 400MG TABLET PO ONE (21:00)
[2021-08-07] MEDS ORDERED: AMOXICILLIN/POTASSIUM CLAVULANATE 875/125MG TAB PO ONE (21:00)
[2021-08-07] MEDS ORDERED: BACITRACIN ZINC OINT UDPKT TOP ONE (21:00)
[2021-08-07] MEDS ORDERED: LIDOCAINE HCL/PF 1% 10 MG/ML 5ML VIAL INFIL ONE (21:00)
[2021-08-07] MEDS ORDERED: IBUP-2028 MT (22:03)
[2021-08-07] MEDS ORDERED: AMOX-424 MT (22:03)
== END 2021-08-07 22:31 | disposition home or self-care (01) ==
LOC: ER 17:38
DX: S61.216A Laceration without foreign body of right little finger without damage to nail, initial encounter (principal); J45.909 Unspecified asthma, uncomplicated; Z79.899 Other long term (current) drug therapy; Z86.59 Personal history of other mental and behavioral disorders; Z59.00 Homelessness unspecified; X58.XXXA Exposure to other specified factors, initial encounter; Y93.89 Activity, other specified; Y92.89 Other specified places as the place of occurrence of the external cause; Y99.8 Other external cause status
CPT/HCPCS: 29130; 73130; 81025; 90471; 90715; 99283; J3490

== ENCOUNTER 2022-03-03 09:53 | Emergency (ER) | payer MEDICAID, OTHER ==
[~2022-03-03] VITALS: Ht 172.7 cm; Wt 68.0 kg
[~2022-03-03 09:53] MED LIST changes: +AMOX-424 MT
[2022-03-03 10:06] VITALS: BP 125/78
[2022-03-03] MEDS ORDERED: BACITRACIN ZINC OINT UDPKT TOP ONE (10:30)
[2022-03-03] MEDS ORDERED: ACETAMINOPHEN 325MG TABLET PO ONE (10:30)
[2022-03-03] MEDS ORDERED: DIVALPROEX SODIUM 500MG ER TABLET PO ONE (10:30)
== END 2022-03-03 11:10 | disposition left against medical advice (07) ==
LOC: ER 10:10
DX: S09.8XXA Other specified injuries of head, initial encounter (principal); Y08.89XA Assault by other specified means, initial encounter; Y93.89 Activity, other specified; Y92.89 Other specified places as the place of occurrence of the external cause; Y99.8 Other external cause status; J45.909 Unspecified asthma, uncomplicated; Z79.899 Other long term (current) drug therapy; M79.18 Myalgia, other site; G40.909 Epilepsy, unspecified, not intractable, without status epilepticus
CPT/HCPCS: 73562; 99283

== ENCOUNTER 2023-02-20 18:50 | Emergency (ER) | payer MEDICAID, OTHER ==
[~2023-02-20] VITALS: Ht 162.6 cm; Wt 59.0 kg
[2023-02-20 19:40] LABS: BASOPHILS % 0.1 % (0.0-2.0); HEMATOCRIT. 37.1 % (36.0-48.0); HEMOGLOBIN. 12.7 g/dL (12.0-16.0); MEAN CORPUSCULAR HEMOGLOBIN 31.7 pg (28.0-32.0); MEAN CORPUSCULAR VOLUME 92.4 fL (81.0-99.0); MEAN PLATELET VOLUME 8.7 fl (7.4-10.4); MONOCYTES % 4.6 % (2.0-8.0); NEUTROPHILS % 82.3 % (40.0-76.0); PLATELET 251 x1000/uL (130-400); RED BLOOD CELL COUNT 4.02 mill/uL (4.2-5.4); RED CELL DISTRIBUTION WIDTH 13.4 % (11.6-14.6)
[2023-02-20 19:42] LABS: CHLORIDE 105 mEq/L (98-107)
[2023-02-21 00:01] LABS: HCG SCREEN NEGATIVE
[2023-02-21 01:00] VITALS: BP 122/85
[2023-02-21] MEDS ORDERED: KETOROLAC 30MG/ML VIAL IM ONE (01:00)
[2023-02-21] MEDS ORDERED: DOXYCYCLINE HYCLATE 100MG CAPSULE PO ONE (01:00)
[2023-02-21] MEDS ORDERED: CEFTRIAXONE SODIUM 500 MG/VIAL IM ONE (01:00)
[2023-02-21 01:04] LABS: CLARITY URINE CLOUDY (CLEAR); COLOR URINE DARK YELLOW (YELLOW); KETONES URINE TRACE (NEGATIVE); LEUKOCYTE ESTERASE URINE 2+ (NEGATIVE); NITRITE URINE NEGATIVE (NEGATIVE); OCCULT BLOOD URINE NEGATIVE (NEGATIVE); PROTEIN URINE TRACE (NEGATIVE); SPECIFIC GRAVITY URINE 1.034 (1.005-1.030)
[2023-02-21] MEDS ORDERED: IBUP-2028 MT (03:00)
[2023-02-21] MEDS ORDERED: DOXY-456 MT (03:00)
[2023-02-21] MEDS ORDERED: METR-167 MT (03:00)
[2023-02-23 07:07] LABS: NEISSERIA GONORRHOEAE NAA Positive (Negative)
== END 2023-02-21 03:20 | disposition home or self-care (01) ==
LOC: ER 18:50
DX: R10.2 Pelvic and perineal pain (principal); A64 Unspecified sexually transmitted disease; J45.909 Unspecified asthma, uncomplicated; Z79.899 Other long term (current) drug therapy
CPT/HCPCS: 36415; 76830; 76856; 80053; 81003; 81025; 84703; 85025; 87086; 87210; 87491; 87591; 96372; 99285; J0696; J1885; Z7610

== ENCOUNTER 2024-08-11 05:57 | Inpatient (IN) | payer OTHER, MEDICAID ==
[~2024-08-11] VITALS: Ht 162.6 cm; Wt 59.0 kg
[~2024-08-11 05:57] MED LIST changes: +DOXY100C74 MT; +METR-167 MT
[2024-08-11 06:40] LABS: BASOPHILS % 0.5 % (0.0-2.0); EOSINOPHILS % 4.1 % (0.0-5.0); HEMATOCRIT. 36.4 % (36.0-48.0); HEMOGLOBIN. 11.9 g/dL (12.0-16.0); LYMPHOCYTES % 43.8 % (20.0-50.0); MEAN CORPUSCULAR HEMOGLOBIN 29.9 pg (28.0-32.0); MEAN CORPUSCULAR HGB CONC 32.7 g/dL (31.0-37.0); MEAN CORPUSCULAR VOLUME 91.4 fL (81.0-99.0); MEAN PLATELET VOLUME 8.8 fl (7.4-10.4); MONOCYTES % 8.9 % (2.0-8.0); NEUTROPHILS % 42.7 % (40.0-76.0); PLATELET 257 x1000/uL (130-400); RED BLOOD CELL COUNT 3.98 mill/uL (4.2-5.4); RED CELL DISTRIBUTION WIDTH 16.9 % (11.6-14.6); WHITE BLOOD COUNT 3.7 x1000/uL (4.5-11.0)
[2024-08-11 06:43] LABS: CARBON DIOXIDE 27 mEq/L (21-32); CHLORIDE 108 mEq/L (98-107); POTASSIUM 4.1 mEq/L (3.5-5.1); SODIUM 141 mEq/L (136-145)
[2024-08-11 06:44] LABS: CALCIUM 9.5 mg/dL (8.7-10.4)
[2024-08-11 06:49] LABS: GLUCOSE 90 mg/dL (70-105); UREA NITROGEN BLOOD 11 mg/dL (9-23); VALPROIC ACID 77.9 ug/mL (50-100)
[2024-08-11 07:05] LABS: CARBAMAZEPINE < 0.4 ug/mL (4-12); ETHANOL BLOOD < 10 mg/dL (<10); PHENOBARBITAL < 3.0 ug/mL (15.0-40.0); PHENYTOIN < 2.0 ug/mL (10-20)
[2024-08-11 09:14] LABS: VITAMIN B12 SERUM 533 pg/mL (211-911)
[2024-08-11 09:26] LABS: FOLIC ACID (FOLATE) SERUM > 20.00 ng/mL (>5.38)
[2024-08-11] MEDS: LORAZEPAM 2MG/ML INJ IV SCH (11:06)
[2024-08-11] MEDS ORDERED: CLONIDINE 0.1MG TABLET PO PRN (11:15)
[2024-08-11] MEDS ORDERED: DOCUSATE SODIUM 100MG CAPSULE PO PRN (11:15)
[2024-08-11] MEDS ORDERED: ACETAMINOPHEN 325MG TABLET PO PRN ×2 (11:15)
[2024-08-11] MEDS ORDERED: IPRATROPIUM/ALBUTEROL 0.5-3(2.5)MG/3ML NEB NEB PRN (11:15)
[2024-08-11] MEDS ORDERED: MAGNESIUM/ALUMINUM HYDROXIDE/SIMETHICONE 30ML UDC PO PRN (11:15)
[2024-08-11] MEDS ORDERED: GUAIFENESIN 200MG/10ML SUGAR FREE UDC PO PRN (11:15)
[2024-08-11 11:27] LABS: IRON 50 ug/dL (50-170)
[2024-08-11 11:28] LABS: TRIGLYCERIDE 69 mg/dL (0-150)
[2024-08-11 11:29] LABS: LDL CHOLESTEROL 143 mg/dL (5-100)
[2024-08-11 11:30] LABS: CHOLESTEROL 201 mg/dL (<200); HDL CHOLESTEROL 52 mg/dL (>65); TOTAL IRON BINDING CAPACITY 385 ug/dl (250-425)
[2024-08-11 11:33] LABS: T4 FREE 1.57 ng/dL (0.89-1.76); THYROID STIMULATING HORMONE 0.19 uIU/mL (0.55-4.78)
[2024-08-11 11:45] LABS: ETHANOL BLOOD < 10 mg/dL (<10)
[2024-08-11] MEDS: PANTOPRAZOLE SODIUM 40 MG/VIAL IV SCH (11:57)
[2024-08-11] MEDS: ENOXAPARIN 40MG/0.4ML SYR SUBCUT SCH (11:58)
[2024-08-11] MEDS: DEXT 5%/LACTATED RINGERS 1,000 ML IV SCH (12:07)
[2024-08-11 12:19] LABS: CREATINE KINASE MB FRACTION < 0.5 ng/mL (0.5-3.6)
[2024-08-11 12:21] LABS: CREATINE KINASE 122 IU/L (34-145)
[2024-08-11 13:30] VITALS: BP 128/83; PULSE 66; RESP 20; TEMP 36.78072; O2SAT 100
[2024-08-11] MEDS: LEVETIRACETAM 1000MG PREMIX 100 ML IV SCH (15:00)
[2024-08-11 16:00] VITALS: BP 133/63; PULSE 55; RESP 20; TEMP 36.50292; O2SAT 100
[2024-08-11 16:36] VITALS: BP 117/72; PULSE 72; RESP 20; TEMP 36.696
[2024-08-11 20:00] VITALS: BP 129/54; PULSE 79; RESP 18; TEMP 36.50292; O2SAT 99
[2024-08-11] MEDS ORDERED: ZOLPIDEM TARTRATE 5MG TABLET PO PRN (21:00)
[2024-08-11] MEDS ORDERED: LEVETIRACETAM 1,000MG in NACL 100ML PREMIX IV SCH (21:00)
[2024-08-12] VITALS: BP 110/59; PULSE 71; RESP 19; TEMP 36.28068; O2SAT 100
[2024-08-12 04:00] VITALS: BP 136/79; PULSE 80; RESP 19; TEMP 36.00288; O2SAT 96
[2024-08-12] MEDS: LORAZEPAM 2MG/ML INJ IV NR (04:50)
[2024-08-12 06:26] LABS: CHLORIDE 107 mEq/L (98-107); POTASSIUM 3.9 mEq/L (3.5-5.1); SODIUM 140 mEq/L (136-145)
[2024-08-12 06:31] LABS: CALCIUM 9.3 mg/dL (8.7-10.4); CARBON DIOXIDE 26 mEq/L (21-32)
[2024-08-12 06:36] LABS: GLUCOSE 81 mg/dL (70-105); UREA NITROGEN BLOOD 11 mg/dL (9-23)
[2024-08-12 06:38] LABS: ALANINE AMINOTRANSFERASE 17 IU/L (10-49); ASPARTATE AMINOTRANSFERASE 16 IU/L (<34); PHOSPHORUS 3.8 mg/dL (2.5-4.9)
[2024-08-12 06:39] LABS: BILIRUBIN TOTAL 0.7 mg/dL (0.1-1.0); PROTEIN TOTAL 6.9 g/dL (6.0-8.3)
[2024-08-12 06:46] LABS: BASOPHILS % 0.4 % (0.0-2.0); EOSINOPHILS % 3.5 % (0.0-5.0); HEMATOCRIT. 36.7 % (36.0-48.0); HEMOGLOBIN. 12.3 g/dL (12.0-16.0); LYMPHOCYTES % 45.4 % (20.0-50.0); MEAN CORPUSCULAR HEMOGLOBIN 30.4 pg (28.0-32.0); MEAN CORPUSCULAR HGB CONC 33.4 g/dL (31.0-37.0); MEAN CORPUSCULAR VOLUME 91.2 fL (81.0-99.0); MEAN PLATELET VOLUME 8.9 fl (7.4-10.4); MONOCYTES % 7.4 % (2.0-8.0); NEUTROPHILS % 43.3 % (40.0-76.0); PLATELET 247 x1000/uL (130-400); RED BLOOD CELL COUNT 4.03 mill/uL (4.2-5.4); RED CELL DISTRIBUTION WIDTH 17.1 % (11.6-14.6); WHITE BLOOD COUNT 4.5 x1000/uL (4.5-11.0)
[2024-08-12 08:00] VITALS: BP 95/59; PULSE 67; RESP 17; TEMP 36.50292; O2SAT 100
[2024-08-12 12:00] VITALS: BP 96/65; PULSE 75; RESP 17; TEMP 36.3918; O2SAT 95
[2024-08-12 16:00] VITALS: BP 107/53; PULSE 69; RESP 17; TEMP 36.61404; O2SAT 100
[2024-08-12] MEDS: LEVETIRACETAM 1000MG PREMIX 100 ML IV SCH (18:40)
[2024-08-12 20:00] VITALS: BP 137/92; PULSE 75; RESP 18; TEMP 36.50292; O2SAT 99
[2024-08-13] VITALS (7 sets, daily range): BP systolic 128–141; BP diastolic 72–90; PULSE 50–76; RESP 17–22; TEMP 36.50292–37.2252; O2SAT 99–100
[2024-08-13] MEDS ORDERED: LORAZEPAM 2MG/ML INJ IV PRN (09:15)
[2024-08-13] MEDS: LORAZEPAM 2MG/ML INJ IV ONE (09:22)
[2024-08-13] MEDS: ONDANSETRON HCL 4MG/2ML INJ IV PRN (09:24)
[2024-08-13 14:37] LABS: CLARITY URINE CLOUDY (CLEAR); COLOR URINE YELLOW (YELLOW); GLUCOSE URINE NEGATIVE (NEGATIVE); KETONES URINE NEGATIVE (NEGATIVE); LEUKOCYTE ESTERASE URINE 3+ (NEGATIVE); NITRITE URINE NEGATIVE (NEGATIVE); OCCULT BLOOD URINE NEGATIVE (NEGATIVE); PROTEIN URINE NEGATIVE (NEGATIVE); SPECIFIC GRAVITY URINE 1.011 (1.005-1.030)
[2024-08-13 15:03] LABS: *AMPHETAMINES SCREEN URINE NEGATIVE (NEGATIVE); *BARBITURATES SCREEN URINE NEGATIVE (NEGATIVE); *BENZODIAZEPINES SCREEN URINE PRESUMPTIVE POSITIVE (NEGATIVE); *COCAINE SCREEN URINE NEGATIVE (NEGATIVE); CANNABINOID URINE SCREEN PRESUMPTIVE POSITIVE (NEGATIVE); ECSTASY MDMA SCREEN URINE NEGATIVE (NEGATIVE); METHADONE URINE SCREEN NEGATIVE (NEGATIVE); OPIATES URINE SCREEN NEGATIVE (NEGATIVE); PHENCYCLIDINE URINE SCREEN NEGATIVE (NEGATIVE)
[2024-08-13 15:55] LABS: SQUAMOUS EPITHELIAL CELL URINE 2+ /lpf (RARE/1+)
[2024-08-13 15:56] LABS: RBC URINE 0-2 /hpf (0-2); WBC URINE 50-100 /hpf (0-2)
[2024-08-13 15:57] LABS: BACTERIA URINE 2+
== END 2024-08-13 12:33 | DRG 101 ==
LOC: ER 06:12 → 5WST 07:53 → 8WST 13:15
PROVIDERS: ADMIT Internal Medicine; ATTEND Internal Medicine
PROC: 4A00X4Z Measurement of Central Nervous Electrical Activity, External Approach (ICD-10-PCS; principal; 2024-08-13)
DX: R56.9 Unspecified convulsions (principal); J45.909 Unspecified asthma, uncomplicated; D64.9 Anemia, unspecified
CPT/HCPCS: 36415; 80048; 80053; 80061; 80156; 80165; 80184; 80185; 80305; 80320; 81003; 82550; 82553; 82607; 82746; 82962; 83036; 83540; 83550; 83735; 84100; 84439; 84443; 85025; 99285; C1893; J1650; J1953; J2060; J2405; J2470; J7121; G0480